=== PATIENT | male | born 1950 | race Caucasian/White ===

== ENCOUNTER 2020-06-07 12:35 | Inpatient (IN) | payer OTHER ==
[~2020-06-07] VITALS: Ht 177.8 cm; Wt 71.8 kg
--- NOTE | 2020-06-07 13:03 | NUR ---
PATIENT ARRIVED TO ER AT 1255PM, IMMEDIATELY PLACED ON MONITOR, PLACED IV ACESS TO RIGHT HAND 20GAUGE, OBTAINED BLOOD SUGAR READING OF 71
[2020-06-07 13:26] LABS: RED CELL DISTRIBUTION WIDTH 13.9 % (11.5-14.5)
[2020-06-07 13:27] LABS: PLATELET COUNT 349 x10^3mcL (130-400)
--- NOTE | 2020-06-07 13:35 | NUR ---
XRAY AT BEDSIDE, MEDICATED WITH MORPHINE AND ZOFRAN
[2020-06-07 13:45] LABS: CALCIUM 8.3 mg/dL (8.5-10.1); CARBON DIOXIDE 15.6 mmol/L (21-32); CREATININE SERUM 2.4 mg/dL (0.7-1.3); POTASSIUM SERUM 5.4 mmol/L (3.5-5.1)
[2020-06-07 13:50] LABS: BAND NEUTROPHIL 3 % (0-10); BASOPHIL 0 % (0-2); MONOCYTE 10 % (0-7); PLATELET MORPHOLOGY PLATELETS NORMAL; SEGMENTED NEUTROPHILS 77 % (37-75); rbc morphology (normal/abnorm) NORMAL (NORMAL)
[2020-06-07 14:04] LABS: ALBUMIN 3.8 g/dL (3.4-5.0); BILIRUBIN TOTAL 0.7 mg/dL (0.20-1.00); TOTAL PROTEIN, SERUM 7.4 g/dL (6.4-8.2)
[2020-06-07] MEDS ORDERED: ASPIR 8181 MG PO (14:05)
[2020-06-07] MEDS ORDERED: CARVEDILOL ER40 MG (14:07)
[2020-06-07] MEDS ORDERED: LEVO-T125 MCG PO (14:09)
[2020-06-07] MEDS ORDERED: LOTENSIN20 MG (14:10)
[2020-06-07] MEDS ORDERED: AZOR 10-20 MG1 EACH (14:12)
[2020-06-07] MEDS ORDERED: DULOXETINE HYDR20 MG PO (14:13)
[2020-06-07] MEDS ORDERED: ATROVENT H0.017 MG/1 (14:14)
[2020-06-07] MEDS ORDERED: CARVEDILOL25 M1 PO (14:15)
[2020-06-07] MEDS ORDERED: PEPCID AC20 M2 PO (14:17)
--- NOTE | 2020-06-07 14:31 | NUR ---
TRANSPORTED TO CT AT THIS TIME
--- NOTE | 2020-06-07 14:49 | NUR ---
RETURNS FROM CT. TAKES SIPS OF H2O. PER PERMISSION OF DR. PEPPER
--- NOTE | 2020-06-07 15:40 | NUR ---
PT INFORMED OF NEED FOR MODERATE SEDATION. CONSENTS OBTAINED
--- NOTE | 2020-06-07 16:38 | NUR ---
RT SHOULDER EXT REDUCTION COMPLETED BY DR MARTINEZ. RADIOLOGY AT BEDSIDE AND POST REDUCTION FILMS COMPLETED.
--- NOTE | 2020-06-07 17:20 | NUR ---
RETURNS FROM CT. ALERT. DR. MARTINEZ AT BEDSIDE, EVALUATES PT. PT ABLE TO TAKE ORAL H20 AND APPLE JUICE WITHOUT NAUSEA. COOPERATIVE
[2020-06-07 17:31] LABS: UA SPECIFIC GRAVITY >=1.030 (1.005-1.035); microscopic required? YES; urine erythrocyte 1+ (NEGATIVE)
--- NOTE | 2020-06-07 17:34 | NUR ---
DR. LAWTON AT BEDSIDE SPEAKING WITH PT ABOUT ADMISSION. PT IS AWAKE AND ALERT. COOPERATIVE.
--- NOTE | 2020-06-07 17:55 | NUR ---
DR. LAWTON AT BEDSIDE. CONTINUES SPEAKING WITH PT
--- NOTE | 2020-06-07 17:57 | NUR ---
REPORT RECEIVED FROM DOMINGO CRUZ. PT WILL BE ADMITTED TO ROOM 253B FOR OBSERVATION S/P RIGHT SHOULDER REDUCTION.
[2020-06-07 18:12] LABS: AMPHETAMINE QUAL UR NONE DETECTED (See below)
--- NOTE | 2020-06-07 18:35 | NUR ---
RECEIVED PATIENT FROM ER VIA GUERNEY, ALERT AND ORIENTED X4, PT ABLE TO WALK WITH ASSISTANCE. REPORT PAIN 4/10 TO RT SHOULDER AND NO WHERE ELSE. RT SHOULDER W/ SLING IN PLACE. PLACE T33 NSR W/ HR 95 NOTED. ORIENTED PT TO CALL LIGHT AND ANSWER ALL QUESTIONS. UPDATE POC. IV TO LH INTACT AND SL NOTED. NO REDNESS NOTED. CARE ENDORSE TO JONATHAN CRUZ.
[2020-06-07 19:21] VITALS: BP 148/80
[2020-06-07 20:16] VITALS: BP 122/70
[2020-06-08 05:34] VITALS: BP 170/98
[2020-06-08 06:06] VITALS: BP 147/83
[2020-06-08 06:17] LABS: CARBON DIOXIDE 23.2 mmol/L (21-32); POTASSIUM SERUM 4.9 mmol/L (3.5-5.1)
[2020-06-08 06:23] LABS: BASOPHIL % 0.3 % (0-2); PLATELET COUNT 326 x10^3mcL (130-400); RED CELL DISTRIBUTION WIDTH 14.4 % (11.5-14.5)
--- NOTE | 2020-06-08 07:15 | NUR ---
SEEN AOX4, NOT IN DISTRESS, TELE 33, NSR WITH BBB, PALPABLE PULSES, NO EDEMA, CTA ON BLF, O2 AT 2LPM VIA NC FOR COMFORT, O2 SAT 100%, +BS, VOIDS FREELY, GENERALIZED WEAKNESS, LIMITED R ROM, WITH R ARM SLING, LFA AND RFA SKIN TEARS, HIGHWAY DESIGN ENGINEER, ECCHYMOSIS TO R SHOULDER, NO PAIN AT THIS TIME, IV INTACT AND PATENT, LH, NO REDNESS OR SWELLING,CALL LIGHT WITHIN REACH, BED AT LOWEST POSITION, SIDE RAILS UP
[2020-06-08 07:30] VITALS: BP 153/91
--- NOTE | 2020-06-08 09:15 | NUR ---
KIM MOORE MADE AWARE OF BP AND MEDICATION RECONCILIATION. PER OSCAR, SHE WILL PUT IN MEDS. KIM MOORE MADE AWARE OF CA RESULTS
--- NOTE | 2020-06-08 09:31 | NUR ---
BP 153/91, HR 85. MEDICATIONS GIVEN PER EMAR.
--- NOTE | 2020-06-08 10:29 | NUR ---
PATIENT TRANSPORTED FOR CT SCAN ANGIO OF CHEST TO RULE OUT AORTIC DISSECTION. ACCOMPANIED BY KARL VARGAS.
--- NOTE | 2020-06-08 11:50 | NUR ---
MORPHINE IVP GIVEN FOR LOWER BACK PAIN 02/24
[2020-06-08 12:00] VITALS: BP 123/67
--- NOTE | 2020-06-08 13:50 | NUR ---
WOUND CARE DONE PER WOUND CARE ORDERS
[2020-06-08 16:33] VITALS: BP 147/78
--- NOTE | 2020-06-08 18:42 | NUR ---
SEEN AOX4, NOT IN DISTRESS, NEEDS MET. IV INFUSING WELL AT 100CC/HR. NO REDNESS OR SWELLING.
--- NOTE | 2020-06-08 19:03 | NUR ---
MORPHINE IVP GIVEN FOR LBP 02/24
[2020-06-08 20:11] VITALS: BP 152/58
--- NOTE | 2020-06-08 23:20 | NUR ---
REPORT RECEIVEF FROM NIGHT RN. PATIENT IS IN BED, NO ACUTE DISTRESS NOTED. AAOX4. CALM AND COOPERATIVE. DENIES PAIN, SOB, N/V AT THIS TIME. ON ROOM AIR, BREATHING IS EVEN AND UNLABORED. PLAN OF CARE REVIEWED, VERBALIZED UNDERSTANDING. INSTRUCTED TO CALL WHEN IN NEED OF HELP . PATIENT ASSESSMENT COMPLETED. ALL NEEDS MET. SAFETY MAINTAINED. BED IS AT THE LOWEST POSITION, CALL LIGHT IS WITHIN REACH. WILL CONTINUE TO MONITOR.
[2020-06-09 05:40] VITALS: BP 138/81
[2020-06-09 06:20] LABS: CALCIUM 8.1 mg/dL (8.5-10.1); CARBON DIOXIDE 25.7 mmol/L (21-32); CREATININE SERUM 1.5 mg/dL (0.7-1.3); POTASSIUM SERUM 4.5 mmol/L (3.5-5.1)
--- NOTE | 2020-06-09 06:36 | NUR ---
PATIENT IS STABLE, NO ACUTE DISTRESS NOTED. DENIES PAIN, SOB, N/V AT THIS TIME. ALL NEEDS MET. SAFETY MAINTAINED. BED IS AT THE LOWEST POSITION, CALL LIGHT IS WITHIN REACH. REPORT TO BE GIVEN TO ONCOMING MORNING NURSE TO FOLLOW UP CARE.
--- NOTE | 2020-06-09 07:15 | NUR ---
RECEIVED THIS PT AWAKE AND C/O PAIN OVER RT SHOULDER AND BACK PAIN S/P FROM FALL , REASSURED AND EXPLAIN TO PT AWAITING FOR ENDORSEMENT REPORT FROM [employer]ING [employer] RECEIVING SUPERVISOR RN , NOTED IVF INFUSING VIA LEFT FOREARM ANGIO # 20 .
[2020-06-09 07:18] LABS: BASOPHIL % 0.3 % (0-2); PLATELET COUNT 305 x10^3mcL (130-400); RED CELL DISTRIBUTION WIDTH 14.5 % (11.5-14.5)
[2020-06-09 08:46] VITALS: BP 155/90
--- NOTE | 2020-06-09 08:47 | NUR ---
C/O RT SHOULDER PAIN LEVEL 9/10 MEDICATED WITH MORPHINE SULFATE PURPOSE AND EFFECT EXPLAIN TO PT AND VERBALIZED UNDERSTANDING .
[2020-06-09 12:25] VITALS: BP 131/78
--- NOTE | 2020-06-09 13:56 | NUR ---
REC'D REPORT FROM CHERYL CRUZ. PT C/O L MID BACK PAIN 03/27, ACHING/STABBING. MORPHINE GIVEN PER ORDER. PT IS S/P YAZAN CLOSED REDUCTION, SLING IN PLACE. LFA IV PATENT AND INFUSING. LFA DRESSING CDI. M/S. BREATHING EVEN/UNLABORED ON 2L NC. CALL LIGHT WITHIN REACH, BED AT LOWEST POSITION. WILL CONTINUE TO MONITOR.
--- NOTE | 2020-06-09 14:20 | NUR ---
Initial Nutrition Assessment: 237B SOMMER MICHEL 70M HR Nursing trigger: unintentional weight loss > 10 lbs, admitted with risk diagnosis, poor PO > 3 days Dx: Syncope PMHx: Benign pancreatic cancer, CAD, HTN, hypothyroidism PSHx: CABG x 1, Pancreatectomy, Bilateral rotator cuff surgery, inguinal hernia, 2 hip replacements Labs: (06/09) WBC 17H, H/H 12.8/38L, BUN 31H, Cr 1.5H, BG 113H, Ca 8.1L, (06/07) Lactic acid 2.2H, AST 91H, Alk ph 124H Meds: Cymbalta, Coreg, Aspirin, Colace, Norvasc, Morphine sulfate, Synthroid, Tylenol, Sodium, Pepcid Diet: Cardiac PO intake since admission: (06/08) B: 60% Ht: 177.8cm/70in Wt: 71.781kg/158lbs BMI: 22.7 Bed scale: bed scale not functioning IBW: 75.45kg/166lbs %IBW: 95% UBW: 178lbs Age: 70 Food Allergies: NKFA per pt Edema: no edema Last BM: 06/06 Skin: LFA skin tear COMPUTER ANIMATOR, RFA skin tear, Ecchymosis to right shoulder [place]: 18 Per H and P (06/07), This is a 69-year-old male with history of coronary artery disease s/p CABG, hypertension, hypothyroidism, and benign pancreatic mass, status post pancreatectomy, who is being admitted for syncope and right shoulder dislocation. The patient had been drinking and watching TV, and when he stood up to smoke, he felt lightheaded and blacked out. He regained consciousness a couple of minutes later and had acute right shoulder pain. He then came to the ED for evaluation, where shoulder x-ray showed anterior dislocation of the right shoulder. EKG showed right bundle branch block with first degree AV block. Of note, the patient had intentional weight loss of about 25 pounds, and because of this, the patient's BP has improved and his PCP decreased the dose of his BP meds. The patient denied chest pain or shortness of breath. Pt was admitted with dx: syncope, right shoulder dislocation, Rhabdomyolysis, leukocytosis, CKD, HTN, hypothyroidism RD Note (06/09/2020) Pt was seen lying in bed and appeared to be in pain. Pt reported pain-induced nausea and possibly constipation since no BM since admission. Pt's appetite was poor, but pt was able to tolerate diet with no chewing/swallowing difficulty. Pt reported a recent wt loss of 25lbs in a year, and his usual body weight was 178lbs. At home, pt followed a regular diet and takes centrum silver MVI. Pt mentioned that he used to run marathon, but right now, he tried walking at least twice a week. Problem with: N/V/D/C: pain-induced nausea and constipation per pt Problems with: Chewing: Swallowing: none per pt Current appetite: poor per pt Recent wt change: 25lbs in a year per pt, 20lbs per reported UBW %wt change: 14% in a year per pt Height: 5'10" Vitamin/Supplement use: centrum silver per pt Special diet at home: none per pt Physical activity: pt tried walking twice every week. Nutrition education given (specify specific nutrition education and handout given): Pt was in a lot of pain and cardiac diet education was provided briefly. Written education "Heart-Healthy Nutrition Therapy" from [facility] was provided to pt, and pt verbalized understanding. Food-drug interactions? Education given? n/a Estimated Nutritional Needs Based on current body weight (72kg) Energy: 1800-2160kcal/day (25-30 kcal/kg for maintenance) Protein: 72-86 g/day (1-1.2 g/kg for repletion and CKD) Fluid: 1800-2160mL/day (1 mL/kcal) Nutrition Diagnosis: 1. Unintentional weight loss r/t imbalance intake and output a/e/b pt reported a 25lbs (14%) weight loss in a year. 2. Inadequate energy and protein intake r/t poor PO intake a/e/b pt reported poor appetite and 60% intake reported on 06/08. Intervention 1. Continue with cardiac diet as tolerate 2. Recommend ensure high protein BID to aid PO intake. It will provide additional 320kcal and 32g protein. Monitor/Evaluate Goal: PO intake at least 75% of estimated needs Monitor: PO intake, Labs, GI function, Body weight, ONS intake F/U in 2-3 days as high risk 06/11-
--- NOTE | 2020-06-09 14:20 | NUR ---
1. Continue with cardiac diet as tolerate 2. Recommend ensure high protein BID to aid PO intake. It will provide additional 320kcal and 32g protein.
--- NOTE | 2020-06-09 15:09 | NUR ---
SPO2 96% ON 2L. NC REMOVED, SPO2 93% ON RA. NO DISTRESS NOTED.
--- NOTE | 2020-06-09 17:14 | NUR ---
PT RESTING IN BED WITH EYES CLOSED. BREATHING EVEN/UNLABORED ON RA. NO SIGNS OF DISTRESS OR PAIN NOTED. NO SIGNIFICANT CHANGES DURING SHIFT. WILL ENODORSE TO PM NURSE.
[2020-06-09 17:18] VITALS: BP 124/75
--- NOTE | 2020-06-09 19:50 | NUR ---
PT IS A.O X4, BREATHING REGULAR AND UNLABORED ON ROOM AIR. PT REPORTS CONTINUED PAIN TO RIGHT SHOULDER S/P CLOSED REDUCTION, WILL MEDICATE ORDERED AND CONTINUE TO ASSESS. PT'S RIGHT ARM MAINTAINED IN SLING. IVF INFUSING ORDERED, NO SIGNS OF INFILTRATION TO IV SITE, DRESSING CDI. PT VOIDING FREELING, URINE CLEAR, YELLOW. PT IS MED SURG, LUNG SOUNDS CTAB, NORMAL S1 S2 TO AUSCULTATION, ACTIVE BS X4. SKIN TEARS TO RFA AND LFA DRESSING CHANGED, SMALL AMOUNT OF SEROSANGUINOUS DRAINAGE, SURROUNDING SKIN WNL. SAFETY PRECAUTIONS IN PLACE, WILL CONTINUE TO MONITOR.
[2020-06-09 21:18] VITALS: BP 145/86
--- NOTE | 2020-06-10 00:10 | NUR ---
PT CURRENTLY RESTING, IN NO ACUTE DISTRESS. BREATHING REGULAR AND UNLABORED ON ROOM AIR. PT REPORTED IMPROVEMENT IN RIGHT SHOUDLER PAIN WITH ORDERED PAIN MEDICATION. RIGHT ARM REMAINS IN SLING. IVF INFUSING WITHOUT COMPLICATIONS, NO SIGNS OF INFITLRATION. SAFETY PRECUATIONS IN PLACE, WILL CONTINUE TO MONITOR.
[2020-06-10 05:22] VITALS: BP 139/86
--- NOTE | 2020-06-10 06:07 | NUR ---
PT CURRENTLY RESTING, EASILY AROUSABLE. PT DOES NOT APPEAR TO BE IN ACUTE DISTRESS, BREATHING REGULAR AND UNLABORED ON ROOM AIR. PT'S COMPLAINTS OF PAIN TO RIGHT SHOULD ADDRESSED WITH ORDERED PAIN MEDICATION. DRESSINGS TO RFA SKIN TEAR AND LFA SCAB CHANGED, WOUNDS IMPROVING, SURROUNDING SKIN WNL. PT INDEPENDENT WITH SELF CARE AND REPOSITIONING. IVF INFUSING ORDERED WITHOUT COMPLICATIONS, IV PATENT, NO SIGNS OF INFILTRATION. SAFETY PRECAUTIONS MAINTAINED, WILL ENDORSE CARE TO ONCOMING RN.
[2020-06-10 08:06] LABS: CALCIUM 7.7 mg/dL (8.5-10.1); CARBON DIOXIDE 23.3 mmol/L (21-32); CHLORIDE SERUM 100 mmol/L (98-107); CREATININE SERUM 1.2 mg/dL (0.7-1.3); GFR1 > 60 mL/min; GLUCOSE SERUM 83 mg/dL (74-106); POTASSIUM SERUM 3.5 mmol/L (3.5-5.1); SODIUM SERUM 131 mmol/L (136-145)
[2020-06-10 08:23] LABS: BASOPHIL % 0.3 % (0-2); PLATELET COUNT 294 x10^3mcL (130-400); RED CELL DISTRIBUTION WIDTH 14.4 % (11.5-14.5)
--- NOTE | 2020-06-10 08:30 | NUR ---
0815 AM: ADITI DIRECTOR OF KIDS AT THE BEDSIDE AND MADE HER AWARE OF WBC 18.3 AND PATIENT REQUESTED FOR A STRONGER STOOL SOFT DUE TO CONSTIPATION. NO BM SINCE 06/04/20. ADITI DIRECTOR OF KIDS WILL PUT IN ORDERS. WILL CONT TO MONITOR.
[2020-06-10 08:49] VITALS: BP 148/87
--- NOTE | 2020-06-10 10:05 | NUR ---
1005 AM; REFUSED LACTULOSE AT THIS TIME. PER PATIENT, HE ZOHAIB LET ME KNOW IF HE WANTS IT. PATIENT DOES NOT WANT TO HAVE MASSIVE BM WHILE IN THE HOSPITAL. ADITI LASER CUTTER WAS AT THE BEDSIDE AND TOLD HIM HE MIGHT GO HOME TODAY. PATIENT WANT TO HAVE A BM AT HOME. EDUCATE PATIENT TO INCREASE PO INTAKE OF WATER AND TAKE SOME STOOL SOFTENER AT HOME. PATIENT VERBALIZED UNDERSTANDING.
[2020-06-10] MEDS ORDERED: ACETAMINOPHEN-H1 TA1 PO (10:09)
[2020-06-10 11:55] VITALS: BP 148/87
[2020-06-10 12:08] VITALS: BP 108/64
--- NOTE | 2020-06-10 12:12 | NUR ---
0710 AM: PATIENT IS RESTING IN BED QUEITLY. NO ADDITIONAL DISTRESS NOTED. RIGHT ARM SLING IN PLACE, INTACT AND PATENT. CALL LIGHT WITHIN REACH. WILL CONT TO MONITOR. 0800 AM: EXPLAINED PLAN OF CARE AND PATIENT VERBALIZED UNDERSTANDING. WILL CONT TO MONITOR.
--- NOTE | 2020-06-10 13:59 | NUR ---
1359: GAVE EXTRA ISLAND DRESSING FOR SKIN TEAR AND INSTRUCTED THE PATIENT TO KEEP AN EYE ON HIS S/T.
--- NOTE | 2020-06-10 14:00 | NUR ---
CLEANSE ABRASION SITE TO BILAT ELBOWS WITH NS, PADDED DRY AND COVER WITH SMALL ISLAND DRESSINGS. NO S/SX OF INFECTIONS. CLEASE BILAT FOREARM S/T WITH NS, PADDED DRY AND COVER W/ SMALL ISLAND DRESSING. MINIMAL SEROUSSANGENOUS NOTED TO BOTH FOREARM. NO FOUL SMELL NOTED. IV REMOVED FROM THE LEFT FOREARM. IV CATH INTACT WHEN REMOVED. COVER SITE WITH GAUZE AND SECURE WITH TAPE. NO BLEEDING NOTED. EXPLAINED AND GAVE DC INSTRUCTIONS TO PATIENT AND HE VERBALIZED UNDERSTANDING. ER PREACUTION GIVEN WELL. PATIENT RIGHT ARM SLING IN PLACE-INTACT AND PATENT. PATIENT LEFT THE UNIT IN STABLE CONDITION ACCOMPANIED BY PRIMARY NURSE. PATIENT WAS PICKED UP BY HIS FRIEND.
== END 2020-06-10 14:04 | disposition home or self-care (01) | DRG 683 ==
LOC: ED 12:35 → DU 16:02 → MU 06-08 21:56
PROVIDERS: Student in an Organized Health Care Education/Training Program; ADMIT Family Medicine; ATTEND Family Medicine
PROC: 0PS Upper Bones, Reposition (ICD-10-PCS; principal; 2020-06-07)
DX: N17.0 Acute kidney failure with tubular necrosis (principal); M62.82 Rhabdomyolysis; I45.2 Bifascicular block; R65.10 Systemic inflammatory response syndrome (SIRS) of non-infectious origin without acute organ dysfunction; I95.1 Orthostatic hypotension; S43.001A Unspecified subluxation of right shoulder joint, initial encounter; N18.9 Chronic kidney disease, unspecified; E03.9 Hypothyroidism, unspecified; F17.210 Nicotine dependence, cigarettes, uncomplicated; D72.829 Elevated white blood cell count, unspecified; S43.084A Other dislocation of right shoulder joint, initial encounter; F19.90 Other psychoactive substance use, unspecified, uncomplicated; F12.90 Cannabis use, unspecified, uncomplicated; I12.9 Hypertensive chronic kidney disease with stage 1 through stage 4 chronic kidney disease, or unspecified chronic kidney disease; X58.XXXA Exposure to other specified factors, initial encounter; I25.10 Atherosclerotic heart disease of native coronary artery without angina pectoris; Z95.1 Presence of aortocoronary bypass graft; Z90.410 Acquired total absence of pancreas; Z88.1 Allergy status to other antibiotic agents; Z79.899 Other long term (current) drug therapy; Z79.891 Long term (current) use of opiate analgesic; Z79.01 Long term (current) use of anticoagulants; Y93.89 Activity, other specified; Y92.89 Other specified places as the place of occurrence of the external cause; Y99.8 Other external cause status; Z82.49 Family history of ischemic heart disease and other diseases of the circulatory system; Z72.89 Other problems related to lifestyle; Z79.82 Long term (current) use of aspirin
CPT/HCPCS: 82962; G0378; J2001; J2270; J2405; J2704; J3490; J7030; Q0092